=== PATIENT | female | born 1970 | race Caucasian/White ===

== ENCOUNTER 2025-07-16 14:09 | Outpatient (AMB) | payer OTHER, SELFPAY ==
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
[2025-07-16 14:21] VITALS: BP 123/78; PULSE 91; O2SAT 100; BMI 25.7
--- OUTSIDE RECORDS SUMMARY | 2025-07-16 17:49 | XMS_ITS | Clinical Summary ---
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 Name Role Phone Shoshana Giang MD Primary Care Provider Allergies Active Allergy Reactions Criticality Noted Date Comments Amoxicillin 01/16/2016 Bupropion Hives 01/16/2016 Chicken Derived Hives 12/15/2018 Chocolate 01/15/2022 Cranberry 01/15/2022 Egg Medium 06/13/2013 Erythromycin Hives 01/16/2016 Lactose GI intolerance 12/15/2018 Latex 11/16/2012 Nefazodone Hives 01/16/2016 Other 06/21/2013 Adhesive tape:Other Reaction(s): Rash/Dermatitis Devi skin/redness Bee stings Sulfamethoxazole-Trimethop rim 11/16/2012 [place] 12/21/2018 [place] Medications simethicone (MYLICON) 125 mg chewable tablet Prescribed by Gastroenterology 024 Active albuterol HFA (Ventolin HFA) 90 mcg/actuation inhaler Inhale 2 puffs by mouth every 4 (four) hours if needed for wheezing or shortness of breath. 8 g 2 12/13/ 025 2025 Active capsaicin (ZOSTRIX) 0.075 % creamIndicati ons:back pain Apply thin layer to area of discomfort three times daily as needed in thin layer for 2 weeks. Wash hands after use, avoid contact with eyes. 42.5 g 2 Active pantoprazole (PROTONIX) 40 mg EC tablet TAKE 1 TABLET BY MOUTH EVERY DAY 90 tablet 1 Active fexofenadine (SARA) 180 mg tablet TAKE 1 TABLET BY MOUTH AT BEDTIME. 90 tablet 1 Active cholecalcifer ol (Vitamin D3) 50 mcg (2,000 unit) capsule Take 1 capsule (2,000 Units total) by mouth 1 (one) time each day. 30 each 11 025 2025 Active ondansetron (ZOFRAN) 4 mg tablet Take 1 tablet (4 mg total) by mouth every 8 (eight) hours if needed for nausea. for nausea 30 tablet Active acetaminophen (TYLENOL) 500 mg tablet TAKE 2 TABLETS BY MOUTH EVERY 8 HOURS IF NEEDED FOR MILD PAIN OR MODERATE PAIN. 180 tablet 2 Active levothyroxine (SYNTHROID, LEVOTHROID) 137 mcg tablet Take 1 tablet (137 mcg total) by mouth 1 (one) time each day. 30 each 2 025 2025 Active diclofenac (VOLTAREN) 1 % topical gel APPLY 2 G TOPICALLY TWICE A DAY 100 g 2 Active SUMAtriptan (IMITREX) 50 mg tablet Take 1 tablet (50 mg total) by mouth 1 (one) time if needed for migraine. 9 tablet 5 Active nortriptyline (PAMELOR) 75 mg capsule TAKE 1 CAPSULE BY MOUTH EVERYDAY AT BEDTIME 90 capsule 1 Active terbinafine (LamISIL) 250 mg tabletIndicat ions:Onychomy cosis Take 1 tablet (250 mg total) by mouth 1 (one) time each day. 90 each 025 2024 Active cyclobenzapri ne (FLEXERIL) 10 mg tablet TAKE 1 TABLET BY MOUTH AT BEDTIME NEEDED FOR MUSCLE SPASMS 30 tablet 1 Active thiamine 100 mg tablet TAKE 1 TABLET BY MOUTH EVERY DAY 90 tablet 1 Active atorvastatin (LIPITOR) 10 mg tablet TAKE 1 TABLET BY MOUTH 1 TIME EACH DAY. 90 tablet 1 Active cetirizine (ZyrTEC) 10 mg tablet Take 1 tablet (10 mg total) by mouth 1 (one) time each day. 024 2024 Discontinued thiamine 100 mg tablet TAKE 1 TABLET BY MOUTH EVERY DAY 90 tablet 1 025 2024 Discontinued gabapentin (NEURONTIN) 100 mg capsule Take 1 capsule (100 mg total) by mouth 3 (three) times a day. 2024 Discontinued(T herapy completed) ciclopirox (PENLAC) 8 % solution Apply topically at bedtime. Apply over nail and surrounding skin. Apply daily over previous coat. After seven (7) days, may remove with alcohol and continue cycle. 6.6 mL 1 025 2024 Discontinued atorvastatin (LIPITOR) 10 mg tablet Take 1 tablet (10 mg total) by mouth 1 (one) time each day. 30 each 1 2024 Discontinued Active Problems Problem Noted Date Diagnosed Date Syncope 06/07/2025 Neck pain, chronic 12/29/2024 Assessment & Plan (12/29/2024 12:58 PM EDT): While patient was here, she also described chronic neck pain, upper trapezius pain radiating to the intrascapular region, right shoulder pain with decreased range of motion, inability to lift any weight with the right arm. She also described numbness tingling in the hands bilaterally, worse with driving, sleeping. She recalls having an EMG in the past, cannot recall if it was in the upper extremities, was never told if she had carpal tunnel syndrome. She has had previous physical therapy for her right shoulder and neck pain, has gone to [facility] and Dr. Diana for injections in the neck and shoulder. She states the cortisone shot did not help her shoulder pain. She denies radicular pain in the arms. She would rate her neck pain 3/10, no pain with cervical range of motion. Ms. Lux will try physical therapy, prescription provided. She may benefit from hormone replacement therapy, discussed in detail. It sounds like she has right shoulder tendinitis contributing to her overall neck/upper back pain, has difficulty lifting out laterally, pain with reaching overhead. I ordered cervical spine MRI to rule out nerve root compression, DDD. She may also need EMG upper extremities to rule out carpal tunnel syndrome. I will try to track down prior EMG reports first. History of gastric bypass 12/13/2024 Chronic midline low back pain with left-sided sc iatica 12/13/2024 Assessment & Plan (12/29/2024 12:48 PM EDT): Patient describes back pain that started after a fall 10 years ago, she was rollerskating, fell and had a tailbone fracture. She states last month she had a flareup that kept her laid up for a week, she will have episodes where her back pain is so bad she can barely move. Currently her low back pain is about a 3/10. Sometimes she will experience a stabbing pain in the low back, sometimes stiffness. She states sometimes she will be rubbing her back and feel lumps in the muscle. There are times she will have pain down the left posterior leg, gets numbness in the feet chronically on and off. She states she has had 3 EMGs since she moved here in 2012, cannot recall if they were all of her lower extremities or somewhat in the upper extremities, but was always told they were negative. She also has OA in the knees and ankles, with pain in the joints. No history of tick bites, rashes, fevers, Lyme's disease. She was recently diagnosed with fibromyalgia. She had a hysterectomy in 1 ovary removed in 2004, no hormone replacement therapy, does not recall having a period after her hysterectomy. She had physical therapy years ago, does not recall any cortisone injections in the low back. Ms. Lux has low back pain, back spasms, fairly frequent flareups that limit her ability to walk and move. She will experience pain in the left posterior leg on and off. We can check MRI lumbar spine to rule out any nerve root compression, degenerative changes. I also will order bone density test since she is postmenopausal, lumbar spine x-rays 12/13/2024 showed mild compression deformity superior endplate L3 (stable compared with prior exams). We talked about musculoskeletal syndrome of menopause, potential benefits of hormone replacement therapy, she can discuss further with PCP, RATE MANAGER or menopause specialist, we talked about benefits of weight training which can improve bone density and prevent increased muscle loss, as well as increase protein in the diet. I gave her prescription for physical therapy, we also talked about aquatic PT, acupuncture. She can follow-up to review MRI results once completed. All questions answered. Osteoarthritis of lumbar spine 12/13/2024 Change in bowel habits 06/14/2024 Elevated liver enzymes 06/14/2024 Fatty liver 06/14/2024 Rectal bleeding 06/14/2024 Tubular adenoma of colon 06/14/2024 Marijuana use 11/30/2023 Gastroesophageal reflux disease 10/22/2023 Nicotine dependence 10/22/2023 Osteoarthritis of both knees 10/22/2023 Overweight (BMI 25.0-29.9) 08/17/2023 Tension headache 03/18/2023 Sleep apnea 12/25/2021 Overview (06/26/2024): 11/2021 Home Sleep Study did not reveal sleep apnea or nocturnal hypoxia. 01/07/2023 [facility] Sleep Center Polysomnogram: Wt 225#; BMI 39.86; SE 82%; SM 85%; REM 7%; RDI 9 (AHI 1), REM (RDI 37 - AHI 13), Central apneas 2; Obstructive apneas 0; Mixed apneas 0; hypopneas 5; RERAs 41; average oxygen saturation 95*% (lowest 92% - without saturations <88% for 5% or more of study); PLMs 49. - Obstructive Sleep Apnea - mild overall and mild in REM; mostly RERA; without sleep related hypoventilation by 2022 polysomnogram. Anxiety 09/07/2019 Cervical radiculitis 06/08/2019 Vitamin D deficiency 10/26/2018 Paresthesia and pain of both upper extremities 0 02/11/2018 Overview (06/14/2024): Xray cervical spine with mild arthritis. EMG pending DJD (degenerative joint disease) of knee 015 Depression 03/02/2013 Asthma 11/16/2012 Overview (06/14/2024): 11/02-moves here from [place] Deafness 11/16/2012 Overview (06/14/2024): Recurrent ear infections Hyperlipidemia 11/16/2012 Hypothyroidism 11/16/2012 Overview (06/14/2024): graves Migraine 11/16/2012 Overview (06/14/2024): parasthesias-had seen neurology in [place].had nerve conduction test as well Encounters Date Type Department Care Team Description 06/20/2025 8:45 AM EDT Office Visit Adult Medicine [id number] [place] [phone] Rafael Cruz, GERHARD Chronic midline low back pain with left-sided sciatica (Primary Dx); Age-related osteoporosis without current pathological fracture; Elevated blood pressure reading; Pure hypercholesterolemia ; Hypothyroidism, unspecified type; Chronic bilateral low back pain with bilateral sciatica 05/31/2025 2:45 PM EDT Consult Orthopedic Surgery - [place] [address] [place] [phone] Hans Iqbal DPM Pain in toes of both feet (Primary Dx); Lumbosacral radiculopathy; Onychomycosis 05/23/2025 Telephone Adult Medicine [address] [phone] Shoshana Giang MD 05/01/2025 7:00 AM EDT Ancillary Procedure [facility] [address] [phone] Annual physical exam; Numbness of feet; Decreased pulse from Last 3 Months Immunizations Immunization Administration Dates Next Due Pfizer SARS-CoV-2 COVID-19, mRNA, LNP-S, preservative free 01/29/2021,01/08/2021 Pneumococcal conjugate 20 va lent (Prevnar 20, PCV 20) 2mo and older 03/15/2025 Pneumococcal polysaccharide 23 valent (Pneumovax 23) 2yo and older 09/27/2014 Tdap Tetanus diptheria acell ular pertussis (Boostrix; Adacel) 7yo and older 06/13/2019,11/16/2013 Surgical History Surgery Date Site/Laterality Comments PARTIAL HYSTERECTOMY SUPRACERVICAL ABDL HYSTER W/WO RMVL TUBE OVARY, one ovary removed, tubal ligation KNEE SURGERY Left for fracture BREAST SURGERY Right benign COLONOSCOPY 08/28/2021 polyp ESOPHAGOGASTRODUODENOSCOPY 08/28/2021 GERD GASTRIC BYPASS 04/20/2023 - 05/20/2023 Dr. Cruz CHOLECYSTECTOMY 4 days after gastric bypass Medical History Medical History Date Comments Allergic rhinitis 11/16/2012 Asthma 11/16/201211/02-[place]oves here from [place] Deafness 11/16/2012 Recurrent ear in fections Depression 03/02/2013 Hyperlipidemia 11/16/2012 Hypothyroidism 11/16/2012 graves Migraine 11/16/2012 parasthesias-had seen neurology in [place].had nerve conduction test as well Genetic counseling and testing 10/23/2015 p [facility] Former tobacco use 12/16/2017 Since age 15. Quit Nov 03 Obesity (BMI 30-39.9) 12/16/2017 Paresthesia and pain of both upper extremities 02/11/2018 Xray cervical spine with mil d arthritis. EMG pending Fatty liver Change in bowel habits Rectal bleeding Tubular adenoma of colon Anxiety state Cervical spondylosis without myelopathy Gastroesophageal reflux disease 10/22/2023 Elevated liver enzymes Family History Medical History Relation Name Comments Breast cancer Aunt 1 Mat Glaucoma Aunt 1 Mat Other cancer Aunt 2 PAT Uterine CABG Father liver ca Breast cancer Maternal Grandmother Heart failure Mother and TIA Other: restless leg Mother Other cancer Paternal Grandmother uterine Diabetes Sister Other cancer Sister uterine Blindness Neg Hx Cataracts Neg Hx Macular degeneration Neg Hx Strabismus Neg Hx Relation Name Status Comments Aunt 1 Mat Alive Aunt 2 PAT Alive Brother Alive 3,healthy Father Alive copd Maternal Grandmother Mother copd,some heart issue Paternal Grandmother Sister Alive 3,half sisters Social History Tobacco Use Types Packs/Day Years Used Date Smoking Tobacco: Former Cigarettes 1 33.1 0 09/20/1984 - 11/03/2017 Smokeless Tobacco: Never Tobacco Cessation:Counseling Given: Not Answered Alcohol Use Standard Drinks/Week Comments No 0 (1 standard drink = 0.6 oz pur e alcohol) Housing Instability Answer Date Recorde d Are you worried that in the next 2 months you may not have stable housing? Yes 08/09/2024 Food Access & Nutrition Answer Date Rec orded Do you have access to a vari ety of food including fruits and vegetables? No 08/09/2024 Access to Healthcare Answer Date Record ed Within the last 3 months, ho w many times did you visit the emergency department for your medical care? 1 08/09/2024 Health Literacy Answer Date Recorded How often do you need to hav e someone help you when you read instructions, pamphlets, or other written material from your doctor or pharmacy? Never 08/09/2024 Caregiver: How often do you need to have someone help you when you read instructions, pamphlets, or other written material from your doctor or pharmacy? Not on file 08/09/2024 Financial Risk Answer Date Recorded How hard is it for you to pa y for the very basics like food, housing, medical care, and air conditioning / heating? Very hard 08/09/2024 Transportation Answer Date Recorded Has the lack of transportati on kept you from meetings, work, or from getting things needed for daily living? No Has the lack of transportati on kept you from medical appointments or from getting medications? No 08/09/2024 Social Isolation Answer Date Recorded How often do you feel lonely or isolated from th ose around you? Rarely 08/09/2024 Food Risk Answer Date Recorded Within the past 12 months we worried whether our food would run out before we got money to buy more. Sometimes true 024 Within the past 12 months th e food we bought just didn't last and we didn't have money to get more. Sometimes true 08/09/2024 Dependent Care Answer Date Recorded Do you need help finding or paying for care for your loved ones. For example, child watch attendant or elderly care for an older adult? No 08/09/2024 Education Answer Date Recorded Do you think completing more education or training, like finishing a GED, going to college, or learning a trade, would be helpful for you? N/A 08/09/2024 Employment and Income Answer Date Recor ded During the last four weeks, have you been actively looking for work? No 08/09/2024 Living Situation Answer Date Recorded What is your living situation? Unrecognized valu e 08/09/2024 Comments No Sex and Gender Information Value Date Recorded Sex Assigned at Female 03/19/2022 11:51 AM EDT Legal Sex Female 11:46 AM EDT Gender Identity Female 03/19/2022 11:51 AM EDT Sexual Orientation Straight 03/19/2022 11 :51 AM EDT Obstetrics History Last Filed Vital Signs Vital Sign Reading Time Taken Comments Blood Pressure 128/88 06/20/2025 9:14 AM EDT Pulse 91 06/20/2025 8:35 AM EDT Temperature 36.2 C (97.2 F) 06/20/2025 8:35 AM EDT Respiratory Rate 18 06/20/2025 8:35 AM EDT Oxygen Saturation 97% 06/20/2025 8:35 AM EDT Inhaled Oxygen Concentration - - Weight 67.6 kg (149 lb) 06/20/2025 8:35 AM EDT Height 162.6 cm (5' 4 ) 06/20/2025 8:35 AM EDT Body Mass Index 25.58 06/20/2025 8:35 AM EDT Plan of Treatment Upcoming Encounters Date Type Department Care Team (Late st Contact Info) Description 09/19/2025 11:00 AM EST Consult Vascular Surgery - [place] [address] [place] [address] Ashli Dickson MD [address] [place] [phone] 03/19/2026 10:00 AM EDT Office Visit Adult Medicine [address] [phone] Shoshana Giang MD [address] [place] [phone] Health Maintenance Due Date Last Done Comments RSV Immunization Adult Patients (1 - Risk 50-74 years 1-dose series) 2022 COVID-19 Vaccine (3 - 2024- season) 2025 01/29/2021, 01/08/2021 Influenza Vaccine (#1) 2025 Social Influencers of Health Screening 08/09/2025 08/09/2024 Hepatitis B Vaccines (1 of 3 - 19+ 3-dose series) 09/20/2025 Postponed from 1991 (Patient Refused) Medicare Annual Wellness Visit 09/20/2025 Postponed from 03/19/2022 (Patient Refused) Zoster Vaccines (1 of 2) 09/20/2025 Pos tponed from 2022 (Patient Refused) Breast Cancer Screening 10/25/2025 10/25/19 24, 04/15/2022, 04/08/2021, Additional history exists Lung Cancer Screening (Low Dose CT) 02/02/2026 02/02/2025, 01/11/2023 DTaP,Tdap,and Td Vaccines (3 - Td or Tdap) 06/13/2029 06/13/2019, 11/16/2013 Cholesterol Screening (Lipid Panel) 04/23/2030 04/23/2025, 02/05/2025, 10/22/2023, Additional history exists Colorectal Cancer Screening: Colonoscopy 08/28/2031 08/28/2021, 08/28/2021, 08/28/2021, Additional history exists Osteoporosis Screening (Bone Density Screening) 02/14/2035 02/14/2025 HIV Screening Completed 08/03/2024 Hepatitis C Screening Completed 08/03/2024, 024 Depression Screening Completed 12/09/2024, 01/26/20 Pneumococcal Vaccine: 50+ Years Completed 03/15/2025, 09/27/2014 HIB Vaccines Aged Out No longer eligi ble based on patient's age to complete this topic HPV Vaccines Aged Out No longer eligi ble based on patient's age to complete this topic Hepatitis A Vaccines Aged Out No long er eligible based on patient's age to complete this topic IPV Vaccines Aged Out No longer eligi ble based on patient's age to complete this topic MMR Vaccines Aged Out No longer eligi ble based on patient's age to complete this topic Meningococcal ACWY Vaccine Aged Out N o longer eligible based on patient's age to complete this topic Meningococcal B Vaccine Aged Out No l onger eligible based on patient's age to complete this topic RSV Immunization Patients Under 20 months Aged Out No longer eligible based on patient's age to complete this topic Varicella Vaccines Aged Out No longer eligible based on patient's age to complete this topic Procedures Procedure Name Priority Date/Time Associated Diagnosis Comments VAS US DUPLEX LOWER EXT ARTERIES BILAT WITH ANH Routine 05/01/2025 7:37 AM EDT Annual physical exam Numbness of feet Decreased pulse TRIIODOTHYRONINE FREE Routine 04/23/2025 8:10 AM EDT Hypothyroidism, unspecified type FREE THYROXINE WITH REFLEX TO FREE TRIIODOTHYRONINE Routine 04/23/2025 8:10 AM EDT Hypothyroidism, unspecified type CBC WITH AUTO DIFFERENTIAL Routine 04/23/2025 8:10 AM EDT Annual physical exam VITAMIN D 25 HYDROXY Routine 04/23/2025 8:10 AM EDT Annual physical exam CBC AND DIFFERENTIAL Routine 04/23/2025 8:10 AM EDT Annual physical exam COMPREHENSIVE METABOLIC PANEL Routine 04/23/2025 8:10 AM EDT Annual physical exam LIPID PANEL WITH REFLEX TO DIRECT LDL Routine 04/23/2025 8:10 AM EDT Annual physical exam THYROID STIMULATING HORMONE WITH REFLEX TO FREE T4 AND FREE T3 Routine 04/23/2025 8:10 AM EDT Hypothyroidism, unspecified type BD BONE DENSITY DXA AXIAL SKELETON Routine 02/14/2025 9:07 AM EDT H/O compression fracture of spine CT LUNG SCREENING Routine 02/02/2025 10: 07 AM EDT Former smoker Encounter for screening for lung cancer HEPATITIS C ANTIBODY Routine 08/03/2024 10:07 AM EST Gonorrhea contact, treated Screen for STD (sexually transmitted disease) HIV 1, 2 ANTIBODY, P24 ANTIGEN WITH REFLEX TO DIFFERENTIATION Routine 08/03/2024 10:07 AM EST Screening examination for venereal disease HM DEPRESSION SCREENING Routine 01/26/2024 SCREENING MAMMOGRAPHY BI 2-VIEW BREAST INC CAD Routine 10/25/2023 9:02 AM EST Encounter for screening mammogram for malignant neoplasm of breast HM COLONOSCOPY Routine 08/28/2021 from Last 3 Months or Most Recently Relevant to Health Maintenance Results * Vascular US duplex lower extremity arteries bilateral with ANH (05/01/2025 7:37 AM EDT) Left Dist External Iliac PSV 89 cm/s CV [facility] LAB Left Prox External Iliac PSV 89 cm/s CV [facility] Left AT dist sys PSV 36 cm/s CV [facility] Left AT mid sys PSV 36 cm/s CV VAS LAB Left AT prox sys PSV 58 cm/s CV VAS LAB Left INFORMATION TECHNOLOGY PROFESSOR prox sys PSV 60 cm/s CV VAS LAB Left mid peroneal sys PSV 29 cm/s CV VAS LAB Left popliteal dist sys PSV 54 cm/s CV VAS LAB Left popliteal prox sys PSV 59 cm/s CV VAS LAB Left PT dist sys PSV 54 cm/s CV VAS LAB Left PT mid sys PSV 58 cm/s CV VAS LAB Left PT prox sys PSV 53 cm/s CV VAS LAB Left super femoral dist sys PSV 85 cm/s CV VAS LAB Left super femoral mid sys PSV 94 cm/s CV VAS LAB Left super femoral prox sys PSV 82 cm/s CV VAS LAB Right Dist External Iliac PSV 91 cm/s CV VAS LAB Right Prox External Iliac PSV 98 cm/s CV V[facility] LAB Right AT dist sys PSV 36 cm/s CV V[facility] LAB Right AT mid sys PSV 40 cm/s CV V[facility] LAB Right AT prox sys PSV 33 cm/s CV VAS LAB Right INFORMATION TECHNOLOGY PROFESSOR prox sys PSV 66 cm/s CV VAS LAB Right mid peroneal sys PSV 41 cm/s CV VAS LAB Right popliteal dist sys PSV 66 cm/s CV VAS LAB Right popliteal prox sys PSV 38 cm/s CV VAS LAB Right PT dist sys PSV 65 cm/s CV VAS LAB Right PT mid sys PSV 62 cm/s CV VAS LAB Right PT prox sys PSV 67 cm/s CV VAS LAB Right super femoral dist sys PSV 62 cm/s CV VAS LAB Right super femoral mid sys PSV 94 cm/s CV VAS LAB Right super femoral prox sys PSV 81 cm/s CV VAS LAB Right profunda sys PSV 59 cm/s CV V[facility] LAB Right arm BP 99 mmHg CV [facility] Left arm BP 103 mmHg CV V[facility] Right posterior tibial 131 mmHg CV V[facility] LAB Right Dorsalis Pedis 126 mmHg CV VAS LAB Right ANH 1.27 CV VAS LAB Left posterior tibial 127 mmHg CV VAS LAB Left Dorsalis Pedis 102 mmHg CV V[facility] LAB Left ANH 1.23 CV VAS LAB Left profunda sys PSV 62 cm/s CV VAS LAB Anatomical Region Laterality Modality Vascular, Abdomen Ultrasound Narrative 05/18/2025 5:48 PM EDT Right le. Normal ankle-brachial index (1.27). 2. There is evidence of moderate stenosis (20-49%) in the following arterial segments: Proximal SFA, distal SFA, anterior tibial artery Left le. Normal ankle-brachial index (1.23). 2. There is evidence of moderate stenosis (20-49%) in the following arterial segments: Mid to distal anterior tibial artery, MARBLEIZING MACHINE TENDER, and peroneal artery Right Lower Arterial Duplex The distal external iliac artery has triphasic flow. The common femoral artery has triphasic flow. The profunda femoris artery has triphasic flow. The proximal superficial femoral artery has biphasic flow. The mid superficial femoral artery has triphasic flow. The distal superficial femoral artery has biphasic flow. The proximal popliteal artery has biphasic flow. The distal popliteal artery has triphasic flow. The anterior tibial artery has biphasic flow. The posterior tibial artery has triphasic flow. The mid peroneal artery has triphasic flow. Left Lower Arterial Duplex The distal external iliac artery has triphasic flow. The common femoral artery has triphasic flow. The profunda femoris artery has triphasic flow. The superficial femoral artery has triphasic flow. The popliteal artery has triphasic flow. The proximal anterior tibial artery has triphasic flow. The mid anterior tibial artery has biphasic flow. The distal anterior tibial artery has biphasic flow. The posterior tibial artery has biphasic flow. The mid peroneal artery has biphasic flow. Assembler Garment Form Details A hyde scale, color and doppler analysis ultrasound was performed. During the study longitudinal views were obtained. Continuous wave doppler, pulsed wave doppler and pulsed volume recording (PVR) was performed. Overall the study quality was good. us Shoshana Giang MD CV VASCULAR PROCEDURES Maria Luisa l Result * (ABNORMAL) Thyroid stimulating hormone with reflex to free t4 and free t3 (04/23/2025 8:10 AM EDT) TSH 16.92(H) 0.40 - 4.00 mcIU/mL LAB CHEMISTRY METHOD 04/23/2025 11:07 AM EDT [facility] Blood Venous blood specimen / Unknown Venipuncture / Unknown 04/23/2025 8:10 AM EDT 04/23/2025 8:10 AM EDT us Shoshana Giang MD LAB BLOOD ORDERABLES Final Result Performing Organization Address [facility]/ZIP Co de Phone Number [facility] [address] [place] [address], [place] [phone] * Free thyroxine with reflex to free triiodothyronine (04/23/2025 8:10 AM EDT) [facility] Free T4 1.21 0.70 - 1.80 ng/dL LAB CHEMISTRY METHOD 04/23/2025 11:54 AM EDT [facility] Blood Venous blood specimen / Unknown Venipuncture / Unknown 04/23/2025 8:10 AM EDT 04/23/2025 8:10 AM EDT Shoshana Giang MD LAB BLOOD ORDERABLES Final Result [facility] [address] [place] [address], [place] [phone] * (ABNORMAL) Lipid panel with reflex to direct LDL (04/23/2025 8:10 AM EDT) Cholesterol 263(H) 0 - 200 mg/dL LAB CHEMISTRY METHOD 04/23/2025 10:12 AM EDT [facility] Triglycerides 198(H) 0 - 150 mg/dL LAB CHEMISTRY METHOD 04/23/2025 10:12 AM EDT [facility] HDL 42 >=40 mg/dL LAB CHEMISTRY METHOD 04/23/2025 10:12 AM [facility] LDL Calculated 181(H) 0 - 100 mg/dL LAB CHEMISTRY METHOD 04/23/2025 10:12 AM EDT [facility] VLDL Cholesterol Jaspal 39.6 mg/dL LAB CHEMISTRY METHOD 04/23/2025 10:12 AM [facility] Non HDL Chol. (LDL+VLDL) 221(H) <145 mg/dL LAB CHEMISTRY METHOD 04/23/2025 10:12 AM [facility] Chol/HDL Ratio 6.3(H) 0.0 - 4.4 LAB CHEMISTRY METHOD 04/23/2025 10:12 AM T [facility] Blood Venous blood specimen / Unknown Venipuncture / Unknown 04/23/2025 8:10 AM EDT 04/23/2025 8:10 AM EDT us Shoshana Giang MD LAB BLOOD ORDERABLES Final Result [facility] [address] [place] [address], * (ABNORMAL) CBC auto differential (04/23/2025 8:10 AM EDT) WBC 7.6 4.8 - 10.8 K/mcL LAB HEMETOLOGY METHOD 04/23/2025 10:14 AM T [facility] RBC 4.90(H) 3.80 - 4.80 M/mcL LAB HEMETOLOGY METHOD 04/23/2025 10:14 AM T [facility] Hemoglobin 15.4 11.5 - 16.0 g/dL LAB HEMETOLOGY METHOD 04/23/2025 10:14 AM [facility] Hematocrit 46.3 35.0 - 47.0 % LAB HEMETOLOGY METHOD 04/23/2025 10:14 AM [facility] MCV 94.5 79.0 - 98.0 FL LAB HEMETOLOGY METHOD 04/23/2025 10:14 AM [facility] MCH 31.4 27.0 - 32.0 pcg LAB HEMETOLOGY METHOD 04/23/2025 10:14 AM [facility] MCHC 33.3 32.0 - 37.0 g/dL LAB HEMETOLOGY METHOD 04/23/2025 10:14 AM [facility] RDW 12.2 11.0 - 15.0 % LAB HEMETOLOGY METHOD 04/23/2025 10:14 AM [facility] Platelets 355 130 - 400 K/mcL LAB HEMETOLOGY METHOD 04/23/2025 10:14 AM [facility] MPV 10.0 7.0 - 11.0 FL LAB HEMETOLOGY METHOD 04/23/2025 10:14 AM [facility] NRBC 0.0 <1.0 % LAB HEMETOLOGY METHOD 04/23/2025 10:14 AM [facility] NRBC Absolute 0.00 <0.10 K/mcL LAB HEMETOLOGY METHOD 04/23/2025 10:14 AM [facility] Neutrophils Relative 53.6 % LAB HEMETOLOGY METHOD 04/23/2025 10:14 AM [facility] Lymphocytes Relative 38.9 % LAB HEMETOLOGY METHOD 04/23/2025 10:14 AM [facility] Monocytes Relative 5.3 % LAB HEMETOLOGY METHOD 04/23/2025 10:14 AM EDT [facility] Eosinophils Relative 1.3 % LAB HEMETOLOGY METHOD 04/23/2025 10:14 AM [facility] Basophils Relative 0.5 % LAB HEMETOLOGY METHOD 04/23/2025 10:14 AM [facility] Immature Granulocytes Relative 0.4 % LAB HEMETOLOGY METHOD 04/23/2025 10:14 AM EDT [facility] Neutrophils Absolute 4.08 1.50 - 7.00 K/mcL LAB HEMETOLOGY METHOD 04/23/2025 10:14 AM [facility] Lymphocytes Absolute 2.96 1.00 - 5.00 K/mcL LAB HEMETOLOGY METHOD 04/23/2025 10:14 AM [facility] Monocytes Absolute 0.40 0.20 - 1.00 K/mcL LAB HEMETOLOGY METHOD 04/23/2025 10:14 AM [facility] Eosinophils Absolute 0.10 0.00 - 0.50 K/mcL LAB HEMETOLOGY METHOD 04/23/2025 10:14 AM [facility] Basophils Absolute 0.04 0.00 - 0.20 K/mcL LAB HEMETOLOGY METHOD 04/23/2025 10:14 AM [facility] Immature Granulocytes Absolute 0.03 0.00 - 0.03 K/mcL LAB HEMETOLOGY METHOD 04/23/2025 10:14 AM T [facility] Blood Venous blood specimen / Unknown Venipuncture / Unknown 04/23/2025 8:10 AM EDT 04/23/2025 8:10 AM EDT us Shoshana Giang MD LAB BLOOD ORDERABLES Final Result [facility] [address] [place] [address], * Vitamin D 25 hydroxy (04/23/2025 8:10 AM EDT) Vit D, 25-Hydroxy 35.1 30.0 - 80.0 ng/mL LAB CHEMISTRY METHOD 04/23/2025 11:07 AM EDT [facility] Blood Venous blood specimen / Unknown Venipuncture / Unknown 04/23/2025 8:10 AM EDT 04/23/2025 8:10 AM EDT Shoshana Giang MD LAB BLOOD ORDERABLES Final Result Performing Organization Address City/[facility]/ZIP Co de Phone Number [facility] [address] [place] [address], [place] [phone] * (ABNORMAL) Triiodothyronine free (04/23/2025 8:10 AM EDT) Pathologist [facility] [place] T3, Free 215(L) 230 - 420 pcg/dL LAB CHEMISTRY METHOD 04/23/2025 12:43 PM EDT [facility] Blood Venous blood specimen / Unknown Venipuncture / Unknown 04/23/2025 8:10 AM EDT 04/23/2025 8:10 AM EDT Shoshana Giang MD LAB BLOOD ORDERABLES Final Result Performing Organization Address City/[facility]/ZIP Co de Phone Number [facility] [address] [place] [address], [place] [phone] * (ABNORMAL) Comprehensive metabolic panel (04/23/2025 8:10 AM EDT) Pathologist [facility] [place] Sodium 138 133 - 145 mmol/L LAB CHEMISTRY METHOD 04/23/2025 10:12 AM EDT [facility] Potassium 4.3 3.5 - 5.5 mmol/L LAB CHEMISTRY METHOD 04/23/2025 10:12 AM EDT [facility] Chloride 106 96 - 110 mmol/L LAB CHEMISTRY METHOD 04/23/2025 10:12 AM [facility] CO2 29 21 - 32 mmol/L LAB CHEMISTRY METHOD 04/23/2025 10:12 AM [facility] Anion Gap 3 3 - 11 LAB CHEMISTRY METHOD 04/23/2025 10:12 AM [facility] Glucose 78 70 - 100 mg/dL LAB CHEMISTRY METHOD 04/23/2025 10:12 AM [facility] BUN 12 5 - 25 mg/dL LAB CHEMISTRY METHOD 04/23/2025 10:12 AM [facility] Creatinine 0.90 0.50 - 1.10 mg/dL LAB CHEMISTRY METHOD 04/23/2025 10:12 AM [facility] eGFR 77 >=60 mL/min/1. 73m2 LAB CHEMISTRY METHOD 04/23/2025 10:12 AM [facility] Comment:Calculation based on the Chronic Kidney Disease Epidemiology Collaboration (CKD-EPI) equation refit without adjustment for race. BUN/Creatinine Ratio 13.3 LAB CHEMISTRY METHOD 04/23/2025 10:12 AM [facility] Calcium 9.1 8.5 - 10.5 mg/dL LAB CHEMISTRY METHOD 04/23/2025 10:12 AM [facility] AST (SGOT) 23 10 - 42 unit/L LAB CHEMISTRY METHOD 04/23/2025 10:12 AM [facility] ALT (SGPT) 43 10 - 60 unit/L LAB CHEMISTRY METHOD 04/23/2025 10:12 AM [facility] Alkaline Phosphatase 157(H) 42 - 121 unit/L LAB CHEMISTRY METHOD 04/23/2025 10:12 AM [facility] Total Protein 7.2 6.0 - 8.0 g/dL LAB CHEMISTRY METHOD 04/23/2025 10:12 AM [facility] Albumin 4.3 3.2 - 5.0 g/dL LAB CHEMISTRY METHOD 04/23/2025 10:12 AM EDT [facility] Total Bilirubin 0.5 0.0 - 1.4 mg/dL LAB CHEMISTRY METHOD 04/23/2025 10:12 AM EDT [facility] Blood Venous blood specimen / Unknown Venipuncture / Unknown 04/23/2025 8:10 AM EDT 04/23/2025 8:10 AM EDT us Shoshana Giang MD LAB BLOOD ORDERABLES Final Result [facility] [address] [place] [address], * BD Bone Density DXA Axial Skeleton (02/14/2025 9:07 AM EDT) Anatomical Region Laterality Modality Wrist, Hip, L-spine Bone Densito metry 02/14/2025 9:39 AM EDT Impressions 02/14/2025 9:41 AM EDT 1. Osteoporosis. 2. FRAX analysis yields a 10-year probability of major osteoporotic fracture of 11.4% and a 10-year probability of hip fracture of 1.4%. Code 99458 -------- FINAL REPORT -------- Dictated By: José Miguel Corrales Dictated Date: 02/14/2025 09:39 ET Assigned Physician: José Miguel Corrales Reviewed and Electronically Signed By: José Miguel Corrales Signed Date: 02/14/2025 09:41 ET Workstation ID: [id number] Transcribed By: Self Edit Transcribed Date: 02/14/2025 09:39 ET Narrative 02/14/2025 9:41 AM EDT HISTORY: The patient is a 54-year-old postmenopausal female with clinical concern for metabolic bone disease. FINDINGS: Dual energy x-ray absorptiometry of the lumbar spine and femurs is performed. The mean bone mineral density at L1-L4 (with the exclusion of L3) is 0.857 gm/cm2 which is 73% of that of young normals and 77% of that of age matched controls. This yields a T-score of -2.6 and a Z-score of -2.1 which is diagnostic of osteoporosis. The mean bone mineral density of the femurs bilaterally is 0.756 gm/cm2 which is 75% of that of young normals and 80% of that of age matched controls. This yields a T-score of -2.0 and a Z-score of -1.5 which is diagnostic of osteopenia. Procedure Note José Miguel Corrales MD - 02/14/2025 HISTORY: The patient is a 54-year-old postmenopausal female with clinicalconcern for metabolic bone disease. FINDINGS: Dual energy x-ray absorptiometry of the lumbar spine and femursis performed. The mean bone mineral density at L1-L4 (with the exclusionof L3) is 0.857 gm/cm2 which is 73% of that of young normals and 77% ofthat of age matched controls. This yields a T-score of -2.6 and a Z-scoreof -2.1 which is diagnostic of osteoporosis. The mean bone mineral density of the femurs bilaterally is 0.756 gm/[id number] is 75% of that of young normals and 80% of that of age matchedcontrols. This yields a T-score of -2.0 and a Z-score of -1.5 which isdiagnostic of osteopenia. IMPRESSION: 1. Osteoporosis. 2. FRAX analysis yields a 10-year probability of major osteoporoticfracture of 11.4% and a 10-year probability of hip fracture of 1.4%. Code 63245 -------- FINAL REPORT -------- Dictated By: José Miguel Corrales Dictated Date: 02/14/2025 09:39 ET Assigned Physician: José Miguel Corrales Reviewed and Electronically Signed By: José Miguel Corrales Signed Date: 02/14/2025 09:41 ET Workstation ID: [id number] Transcribed By: Self Edit Transcribed Date: 02/14/2025 09:39 ET us Michelle VILLALOBOS IMG DXA PROCEDURES Final R esult * CT Lung Screening (02/02/2025 10:07 AM EDT) Anatomical Region Laterality Modality Chest Computed Tomogra phy 02/02/2025 10:4 2 AM EDT Impressions 02/02/2025 11:08 AM EDT No suspicious mass or nodule. Previous granulomatous disease. No suspicious interval change LUNG RADS: Lung-RADS 2: BENIGN S Modifier (Significant or Potentially Significant Findings): None present No suspicious nonpulmonary findings. RECOMMENDATIONS: 12 month screening low dose CT -------- FINAL REPORT -------- Dictated By: Kael Mcallister Dictated Date: 02/02/2025 10:42 ET Assigned Physician: Kael Mcallister Reviewed and Electronically Signed By: Kael Mcallister Signed Date: 02/02/2025 11:08 ET Workstation ID: [id number] Transcribed By: Self Edit Transcribed Date: 02/02/2025 10:42 ET Narrative 02/02/2025 11:08 AM EDT EXAMINATION: CT CHEST WITHOUT CONTRAST LUNG CANCER SCREENING, LOW DOSE CLINICAL INFORMATION: Lung cancer screening. Former smoker. COMPARISON: Portions of previous 12/27/23 TECHNIQUE: Multidetector CT. Examination of the chest. Examination of the chest without IV contrast. Reformatting in the coronal and sagittal planes. Device: Stellar VCT DLP: 158 mGy-cm CTDI: 4.83 Dose optimization was performed including the use of low-dose iterative reconstruction technique with automatic exposure control based on patient size. Type of contrast: None Volume of IV contrast: None Volume of contrast discarded: 0 mL FINDINGS: LUNG: No abnormality of the trachea or mainstem bronchi. LUNG NODULES: There are no suspicious nodules or masses. There are scattered micronodules several which are calcified granulomata. OTHER PULMONARY: Moderately severe centrilobular emphysema. Barely perceptible reticular dependent lower lung opacities without honeycombing formation. MEDIASTINUM: There are no enlarged mediastinal or hilar lymph nodes. No suspicious abnormalities of the esophagus. The thyroid is not demonstrated. CARDIAC: The heart is not enlarged. No pericardial fluid or thickening There are mild coronary calcifications. VASCULAR: There is no thoracic aortic aneurysm. The main pulmonary artery is normal caliber PLEURA: There is no pleural fluid or pneumothorax AXILLA/CHEST WALL: There are no enlarged axillary lymph nodes. No chest wall mass demonstrated. VISUALIZED UPPER ABDOMEN: No suspicious abnormality on limited assessment of the visualized upper abdomen. Previous bariatric surgery. Previous cholecystectomy. MUSCULOSKELETAL: No suspicious focal bony lesion demonstrated. Procedure Note Kael Mcallister MD - 02/02/2025 EXAMINATION: CT CHEST WITHOUT CONTRAST LUNG CANCER SCREENING, LOW DOSE CLINICAL INFORMATION: Lung cancer screening. Former smoker. COMPARISON: Portions of previous 12/27/23 TECHNIQUE: Multidetector CT. Examination of the chest. Examination of the chest without IV contrast. Reformatting in the coronal and sagittal planes. Device: Stellar VCT DLP: 158 mGy-cm CTDI: 4.83 Dose optimization was performed including the use of low-dose iterativereconstruction technique with automatic exposure control based on patientsize. Type of contrast: None Volume of IV contrast: None Volume of contrast discarded: 0 mL FINDINGS: LUNG: No abnormality of the trachea or mainstem bronchi. LUNG NODULES: There are no suspicious nodules or masses. There are scattered micronodules several which are calcifiedgranulomata. OTHER PULMONARY: Moderately severe centrilobular emphysema. Barelyperceptible reticular dependent lower lung opacities without honeycombingformation. MEDIASTINUM: There are no enlarged mediastinal or hilar lymph nodes. Nosuspicious abnormalities of the esophagus. The thyroid is notdemonstrated. CARDIAC: The heart is not enlarged. No pericardial fluid or thickening There are mild coronary calcifications. VASCULAR: There is no thoracic aortic aneurysm. The main pulmonary arteryis normal caliber PLEURA: There is no pleural fluid or pneumothorax AXILLA/CHEST WALL: There are no enlarged axillary lymph nodes. No chestwall mass demonstrated. VISUALIZED UPPER ABDOMEN: No suspicious abnormality on limited assessmentof the visualized upper abdomen. Previous bariatric surgery. Previouscholecystectomy. MUSCULOSKELETAL: No suspicious focal bony lesion demonstrated. IMPRESSION: No suspicious mass or nodule. Previous granulomatous disease. No suspicious interval change LUNG RADS: Lung-RADS 2: BENIGN S Modifier (Significant or Potentially Significant Findings): Nonepresent No suspicious nonpulmonary findings. RECOMMENDATIONS: 12 month screening low dose CT -------- FINAL REPORT -------- Dictated By: Kael Mcallister Dictated Date: 02/02/2025 10:42 ET Assigned Physician: Kael Mcallister Reviewed and Electronically Signed By: Kael Mcallister Signed Date: 02/02/2025 11:08 ET Workstation ID: [id number] Transcribed By: Self Edit Transcribed Date: 02/02/2025 10:42 ET Ghassan Deluna MD IMG CT PROCEDURES Final Result * Hepatitis C antibody (08/03/2024 10:07 AM EST) Hepatitis C Antibody Negative Negative LAB CHEMISTRY METHOD 08/03/2024 12:16 PM EST [facility] Blood Venous blood specimen / Unknown Venipuncture / Unknown 08/03/2024 10:07 AM EST 08/03/2024 10:18 AM EST Janessa Henderson [facility] BLOOD ORDERABLES Final Re sult Performing Organization Address [facility] de Phone Number [facility] [address] [place] [address], [place] [phone] * HIV 1,2 antibody, p24 antigen with reflex to differentiation (08/03/2024 10:07 AM EST) HIV Combo AB/AG Negative Negative LAB CHEMISTRY METHOD 08/03/2024 12:17 PM EST [facility] Blood Venous blood specimen / Unknown Venipuncture / Unknown 08/03/2024 10:07 AM EST 08/03/2024 10:18 AM EST Narrative [facility] - 08/03/2024 12:17 PM EST This assay is a 4th generation assay allowing for earlier detection of HIV infection by detecting the presence of the HIV-1 p24 antigen as well as the traditional antibodies to HIV type 1 (including group O) and type 2. Use of a 4th generation assay is the current CDC recommendation for HIV screening. Janessa Henderson [facility] BLOOD ORDERABLES Final Re sult Performing Organization Address [facility] Co de Phone Number [facility] [address] [place] [address], [place] [phone] * Depression Screening (01/26/2024) Depression Screening abstracted Historical Provider HEALTH MAINTENANCE Final Result * SCREENING MAMMOGRAPHY BI 2-VIEW BREAST INC CAD (10/25/2023 9:02 AM EST) Anatomical Region Laterality Modality Radiographic Shana ging 10/22/2023 11:5 9 AM EST Narrative 10/26/2023 7:32 AM EST This is a summary report. The complete report is available in the patient's medical record. If you cannot access the medical record, please contact the sending organization for a detailed fax or copy. Exam: Screening mammogram Findings: Digital bilateral full-field screening mammography is performed with tomosynthesis and interpreted with the aid of computer-aided detection. Comparison is made with 04/15/2022 and as far back as 01/31/2019. Breast parenchyma is composed of scattered fibroglandular densities. No new suspicious mass, architectural distortion, or suspicious calcifications. Impression: No mammographic evidence of malignancy. BI-RADS 1 - negative Procedure Note Payal Cho MD - 05/08/2024 This is a summary report. The complete report is available in thepatient's medical record. If you cannot access the medical record, pleasecontact the sending organization for a detailed fax or copy. Exam: Screening mammogram Findings: Digital bilateral full-field screening mammography is performedwith tomosynthesis and interpreted with the aid of computer-aideddetection. Comparison is made with 04/15/2022 and as far back as01/31/2019. Breast parenchyma is composed of scattered fibroglandular densities. Nonew suspicious mass, architectural distortion, or suspiciouscalcifications. Impression: No mammographic evidence of malignancy. 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
== END 2025-07-16 14:45 | disposition home or self-care (01) ==
PROVIDERS: PCP Internal Medicine; Visit Provider Nurse Practitioner Family
DX: M54.50 Low back pain, unspecified (principal); G89.29 Other chronic pain; M51.369 Other intervertebral disc degeneration, lumbar region without mention of lumbar back pain or lower extremity pain; M47.817 Spondylosis without myelopathy or radiculopathy, lumbosacral region; M25.50 Pain in unspecified joint; M81.0 Age-related osteoporosis without current pathological fracture
CPT/HCPCS: 99204

== ENCOUNTER → 2025-07-16 14:09 | Outpatient (BNVA) | payer OTHER, SELFPAY | PROVIDERS: PCP Internal Medicine; Visit Provider Nurse Practitioner Family | DX: M51.360 Other intervertebral disc degeneration, lumbar region with discogenic back pain only (principal); G89.29 Other chronic pain; M47.817 Spondylosis without myelopathy or radiculopathy, lumbosacral region; M25.50 Pain in unspecified joint; M81.0 Age-related osteoporosis without current pathological fracture | CPT/HCPCS: 99202 ==

== ENCOUNTER 2025-09-18 07:03 | Outpatient (REF) | payer OTHER, SELFPAY ==
--- NOTE | ~2025-09-18 | FL_ITS ---
EXAMINATION: FLUOROSCOPY GUIDANCE FOR NEEDLE PLACEMENT CLINICAL INFORMATION: M47.817 - Spondylosis without myelopathy or radiculopathy, lumbosacral r... COMPARISON: None available. TECHNIQUE: Fluoroscopy guidance provided for pain management procedure. FINDINGS: 12 submitted fluoroscopic images. These demonstrate needle placement and contrast injection adjacent to the bilateral lateral L3, L4 and L5 vertebrae. Her note for detailed findings. FLUOROSCOPY TIME: 41 seconds DOSE AREA PRODUCT: 1612 mGy-cm2 FL/FL guidance in treatment room IMPRESSION: Fluoroscopy guidance for pain management procedure. Electronically signed by: Jamee Pruett MD 09/19/2025 09:45 AM [facility]
--- OUTSIDE RECORDS SUMMARY | 2025-09-18 08:48 | XMS_ITS | Clinical Summary ---
Author Organization [facility] [place] Address [address] [place] [address] Care Team Providers Care Tram Driver Name Role Phone Shoshana Giang MD Primary Care Provider Allergies Active Allergy Reactions Criticality Noted Date Comments Amoxicillin 01/16/2016 Bupropion Hives 01/16/2016 Chicken Derived Hives 12/15/2018 Chocolate 01/15/2022 Cranberry 01/15/2022 Egg Medium 06/13/2013 Erythromycin Hives 01/16/2016 Lactose GI intolerance 12/15/2018 Latex 11/16/2012 Nefazodone Hives 01/16/2016 Other 06/21/2013 Adhesive tape:Other Reaction(s): Rash/Dermatitis Devi skin/redness Bee stings Sulfamethoxazole-Trimethop rim 11/16/2012 [place] 12/21/2018 [place] Medications simethicone (MYLICON) 125 mg chewable tablet [...] contact with eyes. 42.5 g 2 Active cholecalcifer ol (Vitamin D3) 50 mcg (2,000 unit) capsule Take 1 capsule (2,000 Units total) by mouth 1 (one) time each day. 30 each 025 2025 Active ondansetron (ZOFRAN) 4 mg tablet Take 1 tablet (4 mg total) by mouth every 8 (eight) hours if needed for nausea. for nausea 30 tablet Active diclofenac (VOLTAREN) 1 % topical gel APPLY 2 G TOPICALLY TWICE A DAY 100 g 2 Active SUMAtriptan (IMITREX) 50 mg tablet Take 1 tablet (50 mg total) by mouth 1 (one) time if needed for migraine. 9 tablet 5 Active nortriptyline (PAMELOR) 75 mg capsule TAKE 1 CAPSULE BY MOUTH EVERYDAY AT BEDTIME 90 capsule 1 Active thiamine 100 mg tablet TAKE 1 TABLET BY MOUTH EVERY DAY 90 tablet 1 Active atorvastatin (LIPITOR) 10 mg tablet TAKE 1 TABLET BY MOUTH 1 TIME EACH DAY. 90 tablet 1 Active fexofenadine (SARA) 180 mg tablet TAKE 1 TABLET BY MOUTH AT BEDTIME. 90 tablet 1 Active acetaminophen (TYLENOL) 500 mg tablet TAKE 2 TABLETS BY MOUTH EVERY 8 HOURS IF NEEDED FOR MILD PAIN OR MODERATE PAIN. 540 tablet 6 Active levothyroxine (SYNTHROID, LEVOTHROID) 137 mcg tablet TAKE 1 TABLET (137 MCG TOTAL) BY MOUTH DAILY 90 tablet 1 Active pantoprazole (PROTONIX) 40 mg EC tablet TAKE 1 TABLET BY MOUTH EVERY DAY 90 tablet 1 Active cyclobenzapri ne (FLEXERIL) 10 mg tablet TAKE 1 TABLET BY MOUTH AT BEDTIME NEEDED FOR MUSCLE SPASMS 30 tablet Active terbinafine (LamISIL) 250 mg tabletIndicat ions:Onychomy cosis Take 1 tablet (250 mg total) by mouth 1 (one) time each day. 90 each 025 2024 cyclobenzapri ne (FLEXERIL) 10 mg tablet TAKE 1 TABLET BY MOUTH AT BEDTIME NEEDED FOR MUSCLE SPASMS 30 tablet 08/17/ 025 2024 Discontinued Active Problems Problem Noted Date [...] therapy, she can discuss further with PCP, RN PATIENT SERVICES or menopause specialist, we talked about benefits [...] reveal sleep apnea or nocturnal hypoxia. 01/07/2023 [facility] Polysomnogram: Wt 225#; BMI 39.86; [...] Asthma 11/16/2012 Overview (06/14/2024): 11/02-moves here from [place] Deafness 11/16/2012 Overview (06/14/2024): Recurrent ear infections Hyperlipidemia 11/16/2012 Hypothyroidism 11/16/2012 Overview (06/14/2024): graves Migraine 11/16/2012 Overview (06/14/2024): parasthesias-had seen neurology in [place], [place].had nerve conduction test as well Encounters Date Type Department Care Team Description 07/23/2025 Telephone Adult Medicine [address] [phone] Shoshana Giang MD 06/20/2025 8:45 AM EDT Office Visit Adult Medicine [address] [phone] Nikkie Cruz-Pam Nixon, [place]ERH[place] Chronic midline low back pain with left-sided sciatica (Primary Dx); Age-related osteoporosis without current pathological fracture; Elevated blood pressure reading; Pure hypercholesterolemia; Hypothyroidism, unspecified type; Chronic bilateral low back pain with bilateral sciatica from Last 3 Months Immunizations Immunization Administration [...] Allergic rhinitis 11/16/2012 Asthma 11/16/201211/02-moves here from [place] Deafness 11/16/2012 Recurrent ear in fections Depression 03/02/2013 Hyperlipidemia 11/16/2012 Hypothyroidism 11/16/2012 graves Migraine 11/16/2012 parasthesias-had seen neurology in [place], [place].had nerve conduction test as well Genetic [...] care for your loved ones. For example, children librarian or elderly care for an older adult? [...] Orientation Straight 03/19/2022 11 :51 AM EDT Last Filed Vital Signs Vital Sign Reading [...] 11:00 AM EST Consult Vascular Surgery - [place] [address] [place] [address] Ashli Dickson MD [address] [place] [phone] 03/19/2026 10:00 AM EDT Office Visit Adult Medicine [address] [phone] Shoshana Giang MD [address] [facility] [place] [address] Health Maintenance Due Date Last Done Comments [...] 2022 (Patient Refused) Breast Cancer Screening 10/25/2025 10/25/19, 04/15/2022, 04/08/2021, Additional history exists Lung Cancer [...] Procedure Name Priority Date/Time Associated Diagnosis Comments LIPID PANEL WITH REFLEX TO DIRECT LDL Routine 04/23/2025 8:10 AM EDT Annual physical exam BD BONE DENSITY DXA AXIAL SKELETON Routine [...] AM EST Screening examination for venereal disease DEPRESSION SCREENING Routine 01/26/2024 SCREENING MAMMOGRAPHY BI 2-VIEW BREAST INC CAD Routine 10/25/2023 9:02 AM EST Encounter for screening mammogram for malignant neoplasm of breast COLONOSCOPY Routine 08/28/2021 from Last 3 Months or Most Recently Relevant to Health Maintenance Results * (ABNORMAL) Lipid panel with reflex to direct LDL (04/23/2025 8:10 AM EDT) Cholesterol 263(H) 0 - 200 mg/dL LAB CHEMISTRY METHOD 04/23/2025 10:12 AM EDT [facility] Triglycerides 198(H) 0 - 150 mg/dL LAB CHEMISTRY METHOD 04/23/2025 10:12 AM EDT [facility] HDL 42 >=40 mg/dL LAB CHEMISTRY METHOD 04/23/2025 10:12 AM EDT [facility] LDL Calculated 181(H) 0 - 100 mg/dL LAB CHEMISTRY METHOD 04/23/2025 10:12 AM EDT [facility] VLDL Cholesterol Jaspal 39.6 mg/dL LAB CHEMISTRY METHOD 04/23/2025 10:12 AM EDT [facility] Non HDL Chol. (LDL+VLDL) 221(H) <145 mg/dL LAB CHEMISTRY METHOD 04/23/2025 10:12 AM T [facility] Chol/HDL Ratio 6.3(H) 0.0 - 4.4 LAB CHEMISTRY METHOD 04/23/2025 10:12 AM EDT [facility] Blood Venous blood specimen / Unknown Venipuncture / Unknown 04/23/2025 8:10 AM EDT 04/23/2025 8:10 AM EDT us Shoshana Giang MD LAB BLOOD ORDERABLES Final Result [facility] [address] [place] [address], * BD Bone Density DXA Axial Skeleton (02/14/2025 9:07 AM EDT) Anatomical Region Laterality Modality Wrist, Hip, L-spine Bone Densito metry 02/14/2025 9:39 AM EDT Impressions 02/14/2025 9:41 AM EDT 1. Osteoporosis. 2. FRAX analysis yields a 10-year probability of major osteoporotic fracture of 11.4% and a 10-year probability of hip fracture of 1.4%. Code 94016 -------- FINAL REPORT -------- Dictated By: José Miguel Corrales Dictated Date: 02/14/2025 09:39 ET Assigned Physician: José Miguel Corrales Reviewed and Electronically Signed By: José Miguel Corrales Signed Date: 02/14/2025 09:41 ET Workstation ID: [id number] Transcribed By: Self Edit Transcribed Date: 02/14/2025 [...] density of the femurs bilaterally is 0.756 gm/cx7elyxi is 75% of that of young normals and 80% of that of age matchedcontrols. This yields a T-score of -2.0 and a Z-score of -1.5 which isdiagnostic of osteopenia. IMPRESSION: 1. Osteoporosis. 2. FRAX analysis yields a 10-year probability of major osteoporoticfracture of 11.4% and a 10-year probability of hip fracture of 1.4%. Code 94024 -------- FINAL REPORT -------- Dictated By: José Miguel Corrales Dictated Date: 02/14/2025 09:39 ET Assigned Physician: José Miguel Corrales Reviewed and Electronically Signed By: José Miguel Corrales Signed Date: 02/14/2025 09:41 ET Workstation ID: [id number] Transcribed By: Self Edit Transcribed Date: 02/14/2025 [...] Signed Date: 02/02/2025 11:08 ET Workstation ID: [id number] Transcribed By: Self Edit Transcribed Date: 02/02/2025 10:42 ET Narrative 02/02/2025 11:08 AM EDT EXAMINATION: CT CHEST WITHOUT CONTRAST LUNG CANCER SCREENING, LOW DOSE CLINICAL INFORMATION: Lung cancer screening. Former smoker. COMPARISON: Portions of previous 12/27/23 TECHNIQUE: Multidetector CT. Examination of the chest. Examination of the chest without IV contrast. Reformatting in the coronal and sagittal planes. Device: Silicor MaterialsT DLP: 158 mGy-cm CTDI: 4.83 Dose optimization [...] in the coronal and sagittal planes. Device: Lightspeed VCT DLP: 158 mGy-cm CTDI: 4.83 Dose [...] Signed Date: 02/02/2025 11:08 ET Workstation ID: [id number] Transcribed By: Self Edit Transcribed Date: 02/02/2025 10:42 ET Ghassan Deluna MD IM CT PROCEDURES Final Result * Hepatitis C antibody (08/03/2024 10:07 AM EST) Pathologist [facility] Hepatitis C Antibody Negative Negative LAB CHEMISTRY METHOD 08/03/2024 12:16 PM EST [facility] Blood Venous blood specimen / Unknown Venipuncture / Unknown 08/03/2024 10:07 AM EST 08/03/2024 10:18 AM EST Janessa CABALLERO LAB BLOOD ORDERABLES Final Re sult [facility] [address] [place] [address], [place] [phone] * HIV 1,2 antibody, p24 antigen with reflex to differentiation (08/03/2024 10:07 AM EST) Pathologist [facility] HIV Combo AB/AG Negative Negative LAB CHEMISTRY METHOD 08/03/2024 12:17 PM EST [facility] Blood Venous blood specimen / Unknown Venipuncture / Unknown 08/03/2024 10:07 AM EST 08/03/2024 10:18 AM EST [facility]ative [facility] - 08/03/2024 12:17 PM EST This assay is a 4th generation assay allowing for earlier detection of HIV infection by detecting the presence of the HIV-1 p24 antigen as well as the traditional antibodies to HIV type 1 (including group O) and type 2. Use of a 4th generation assay is the current CDC recommendation for HIV screening. Janessa Henderson [facility] BLOOD ORDERABLES Final Re sult [facility] [address] [place] [address], [place] [phone] * Depression Screening (01/26/2024) Depression Screening abstracted [...] evidence of malignancy. BI-RADS 1 - negative us Kailee Prince [facility] IMG XR PROCEDURES Final Result * Colonoscopy (08/28/2021) Colonoscopy no interpretation , abstracted Anatomical Region Laterality Modality Other Historical Provider MD HEALTH MAINTENANCE Final Result from Last 3 Months or Most Recently Relevant to Health Maintenance Insurance [facility] MEDICARE Member Subscriber Plan / Payer (Ef fective 2019-Present) Name:JORDY LUXI Relation to Subscriber:Self Name:Tg Lux Payer ID:[id number] Group ID:[id number] Type:Not on file Address: [facility] [address] [id number] MEDICAID - [place] Care Teams Tram Driver Relationship Specialty Start Date End Date Shoshana Giang MD [address] [place] [address] PCP - General 05/04/24
== END 2025-09-18 07:04 | disposition home or self-care (01) ==
LOC: CF 07:03
PROVIDERS: Visit Provider Anesthesiology
DX: M47.816 Spondylosis without myelopathy or radiculopathy, lumbar region (principal); M47.817 Spondylosis without myelopathy or radiculopathy, lumbosacral region
CPT/HCPCS: 64493; 64494; J2003; J2795; Q9967

== ENCOUNTER 2025-09-18 13:39 | Outpatient (AMB) | payer OTHER, SELFPAY ==
[2025-09-18 13:40] VITALS: BP 149/94; PULSE 99; RESP 16; O2SAT 99; BMI 25.7
--- NOTE | 2025-09-18 13:40 | A.OFFVIS_ITS ---
Vital Signs 09/18/25 13:40 09/18/25 14:18 Height 5 ft 4.5 in Weight 152 lb BMI 25.7 BP 149/94 H 152/90 H Blood Pressure Location Lt brachial Lt brachial Position Sitting Sitting Respiration 16 16 Pulse 99 86 Pulse Source Pulse Oximeter Pulse Oximeter Pulse Oximetry (%) 99 97 Oxygen Delivery Method Room Air Room Air Intake Visit Reasons: Finn Dx L3-L4-DR-L5 MBB, *latex allergy Allergies adhesive tape Allergy (Unknown, Verified 07/16/25 14:34) Rash amoxicillin Allergy (Unknown, Verified 07/16/25 14:34) Unknown bee pollen (bee stings) Allergy (Unknown, Verified 07/16/25 14:34) Unknown bupropion Allergy (Unknown, Verified 07/16/25 14:34) Hives chicken derived (chicken) Allergy (Unknown, Verified 07/16/25 14:34) Hives chocolate Allergy (Unknown, Verified 07/16/25 14:34) Unknown cranberry Allergy (Unknown, Verified 07/16/25 14:34) Unknown egg Allergy (Unknown, Verified 07/16/25 14:34) Unknown erythromycin base Allergy (Unknown, Verified 07/16/25 14:34) Hives lactose Allergy (Unknown, Verified 07/16/25 14:34) Gastrointestinal Upset latex Allergy (Unknown, Verified 07/16/25 14:34) Unknown nefazodone Allergy (Unknown, Verified 07/16/25 14:34) Unknown sulfamethoxazole Allergy (Unknown, Verified 07/16/25 14:34) Unknown turkey Allergy (Unknown, Verified 07/16/25 14:34) Unknown PFSH Medical History (Updated 09/18/25 @ 14:39 by Nic uDdley MD) Osteoporosis Polyarthralgia Hypothyroidism Chronic lower back pain Social History (Updated 07/16/25 @ 14:19 by Juliet Ray) Alcohol intake: current Alcohol intake frequency: a few times a week Patient Tobacco Use Status: Former Tobacco user Tobacco use type: Cigarette Substance Use Type: Marijuana Physical Exam Vital Signs: Last Vital Signs Pulse 86 09/18/25 14:18 Resp 16 09/18/25 14:18 BP 152/90 H 09/18/25 14:18 Pulse Ox 97 09/18/25 14:18 Oxygen Delivery Method Room Air 09/18/25 14:18 BMI result Body Mass Index 25.7 Assessment & Plan Assessment & Plan (1) Spondylosis of lumbar region without myelopathy or radiculopathy: Code(s): M47.816 - Spondylosis without myelopathy or radiculopathy, lumbar region Category: Medical Plan Diagnostic medial branch block L3,L4 dorsal ramus L5 bilateral.? ? ?Informed consent was explained to the patient. All questions were explained and? answered.? The patient was taken inside the operating room where he was positioned prone on the operating table. Time-out was performed delineating correct site, side, the nature of the procedure, patient's allergy, . All operating room staff was participating in OR time-out procedure. ? ? The lower back was prepped with ChloraPrep and draped with sterile utility towels.? C-arm was brought over the operating field and sq picture of L4-, L5 vertebra and S1 AREA were delineated on the screen.? Point of interest were delineated as confluence of superior articular process of L4 and L5 vertebra bilaterally with corresponding transverse processes as well as confluence of the sacral alae bilaterally with superior articular process of S1.? The projection of the point of interest to the skin were inject ed with the small amount of local anesthetic lidocaine 2% mixed with ropivacaine 0.5% 1-1 approximately 1 cc.? After that 22 gauge 3.5 inch spinal needle was driven sequentially to the points of interest in tunnel vision fashion. After needles gently contacted the bone at the point of interests the needle was injected with small amount of the contrast.? The injection of the contrast did not demonstrate any intravascular or intrathecal spread of the contrast.? After that injection of the? ropivacaine 0.5%-1cc was performed at each needle location.?After that the needles were removed and Bandaids were applied. Coding Level of Care Code Procedure Only Diagnoses Spondylosis of lumbar region without myelopathy or radiculopathy M47.816
[2025-09-18 14:18] VITALS: BP 152/90; PULSE 86; RESP 16; O2SAT 97
--- OUTSIDE RECORDS SUMMARY | 2025-09-18 17:32 | XMS_ITS | Clinical Summary ---
Author Organization [facility] Address [address] [place] [address] Care Team Providers Care Chalker Soles Name Role Phone Shoshana Giagn MD Primary Care Provider [phone] Allergies Active Allergy Reactions Criticality Noted Date Comments Amoxicillin 01/16/2016 Bupropion Hives 01/16/2016 Chicken Derived Hives 12/15/2018 Chocolate 01/15/2022 Cranberry 01/15/2022 Egg Medium 06/13/2013 Erythromycin Hives 01/16/2016 Lactose GI intolerance 12/15/2018 Latex 11/16/2012 Nefazodone Hives 01/16/2016 Other 06/21/2013 Adhesive tape:Other Reaction(s): Rash/Dermatitis Devi skin/redness Bee stings Sulfamethoxazole-Trimethop rim 11/16/2012 [place] 12/21/2018 [place] [facility] simethicone (MYLICON) 125 mg chewable tablet [...] therapy, she can discuss further with PCP, BOND CLERK or menopause specialist, we talked about benefits [...] reveal sleep apnea or nocturnal hypoxia. 01/07/2023 [facility] Sleep Center Polysomnogram: Wt 225#; [...] Asthma 11/16/2012 Overview (06/14/2024): 11/02-moves here from [place] Deafness 11/16/2012 Overview (06/14/2024): Recurrent ear infections Hyperlipidemia 11/16/2012 Hypothyroidism 11/16/2012 Overview (06/14/2024): graves Migraine 11/16/2012 Overview (06/14/2024): parasthesias-had seen neurology in [place], [place].had nerve conduction test as well Encounters Date Type Department Care Team Description 07/23/2025 Telephone Adult Medicine [address] [phone] Shoshana Giang MD 06/20/2025 8:45 AM EDT Office Visit Adult Medicine [address] [phone] Nikkie Cruz-Pam Nixon, [place] Chronic midline low [...] Allergic rhinitis 11/16/2012 Asthma 11/16/201211/02-moves here from [place] Deafness 11/16/2012 Recurrent ear in fections Depression 03/02/2013 Hyperlipidemia 11/16/2012 Hypothyroidism 11/16/2012 graves Migraine 11/16/2012 parasthesias-had seen neurology in [place], [place].had nerve conduction test as well Genetic [...] for your loved ones. For example, child welfare counselor or elderly care for an older adult? [...] 11:00 AM EST Consult Vascular Surgery - [place] [address] [place] [address] Ashli Dickson MD [address] [place] [phone] 03/19/2026 10:00 AM EDT Office Visit Adult Medicine [address] [phone] Shoshana Giang MD [address] [facility] [place] [address] Health Maintenance Due Date Last Done Comments [...] LAB CHEMISTRY METHOD 04/23/2025 10:12 AM EDT [facility] Triglycerides 198(H) 0 - 150 mg/dL LAB CHEMISTRY METHOD 04/23/2025 10:12 AM EDT [facility] HDL 42 >=40 mg/dL LAB CHEMISTRY METHOD 04/23/2025 10:12 AM EDT [facility] LDL Calculated 181(H) 0 - 100 mg/dL LAB CHEMISTRY METHOD 04/23/2025 10:12 AM EDT [facility] VLDL Cholesterol Jaspal 39.6 mg/dL LAB CHEMISTRY METHOD 04/23/2025 10:12 AM EDT [facility] Non HDL Chol. (LDL+VLDL) 221(H) <145 mg/dL LAB CHEMISTRY METHOD 04/23/2025 10:12 AM T [facility] Chol/HDL Ratio 6.3(H) 0.0 - 4.4 LAB CHEMISTRY METHOD 04/23/2025 10:12 AM EDT [facility] Blood Venous blood specimen / Unknown Venipuncture / Unknown 04/23/2025 8:10 AM EDT 04/23/2025 8:10 AM EDT us Shoshana Giang MD LAB BLOOD ORDERABLES Final Result [facility] [address] [place] [address], * BD Bone Density DXA Axial Skeleton (02/14/2025 9:07 AM EDT) Anatomical Region Laterality Modality Wrist, Hip, L-spine Bone Densito metry 02/14/2025 9:39 AM EDT Impressions 02/14/2025 9:41 AM EDT 1. Osteoporosis. 2. FRAX analysis yields a 10-year probability of major osteoporotic fracture of 11.4% and a 10-year probability of hip fracture of 1.4%. Code 95200 -------- FINAL REPORT -------- Dictated By: José Miguel Corrales Dictated Date: 02/14/2025 09:39 ET Assigned Physician: José Miguel Corrales Reviewed and Electronically Signed By: José Miguel Corrales Signed Date: 02/14/2025 09:41 ET Workstation ID: [id number] Transcribed By: Self Edit Transcribed Date: 02/14/2025 [...] density of the femurs bilaterally is 0.756 gm/wt1xvpnf is 75% of that of young normals and 80% of that of age matchedcontrols. This yields a T-score of -2.0 and a Z-score of -1.5 which isdiagnostic of osteopenia. IMPRESSION: 1. Osteoporosis. 2. FRAX analysis yields a 10-year probability of major osteoporoticfracture of 11.4% and a 10-year probability of hip fracture of 1.4%. Code 06991 -------- FINAL REPORT -------- Dictated By: José Miguel Corrales Dictated Date: 02/14/2025 09:39 ET Assigned Physician: José Miguel Corrales Reviewed and Electronically Signed By: José Miguel Corrales Signed Date: 02/14/2025 09:41 ET Workstation ID: [id number] Transcribed By: Self Edit Transcribed Date: 02/14/2025 [...] Signed Date: 02/02/2025 11:08 ET Workstation ID: [id number] Transcribed By: Self Edit Transcribed Date: 02/02/2025 10:42 ET Narrative 02/02/2025 11:08 AM EDT EXAMINATION: CT CHEST WITHOUT CONTRAST LUNG CANCER SCREENING, LOW DOSE CLINICAL INFORMATION: Lung cancer screening. Former smoker. COMPARISON: Portions of previous 12/27/23 TECHNIQUE: Multidetector CT. Examination of the chest. Examination of the chest without IV contrast. Reformatting in the coronal and sagittal planes. Device: Rpptrip.comT DLP: 158 mGy-cm CTDI: 4.83 Dose optimization [...] Signed Date: 02/02/2025 11:08 ET Workstation ID: [id number] Transcribed By: Self Edit Transcribed Date: 02/02/2025 10:42 ET Ghassan Deluna MD IM CT PROCEDURES Final Result * Hepatitis C antibody (08/03/2024 10:07 AM EST) Pathologist [facility] Hepatitis C Antibody Negative Negative LAB CHEMISTRY METHOD 08/03/2024 12:16 PM EST [facility] Blood Venous blood specimen / Unknown Venipuncture / Unknown 08/03/2024 10:07 AM EST 08/03/2024 10:18 AM EST Janessa CABALLERO LAB BLOOD ORDERABLES Final Re sult [facility] [address] [place] [address], [place] [phone] * HIV 1,2 antibody, p24 antigen with reflex to differentiation (08/03/2024 10:07 AM EST) Pathologist [facility] HIV Combo AB/AG Negative Negative LAB CHEMISTRY METHOD 08/03/2024 12:17 PM EST [facility] Blood Venous blood specimen / Unknown Venipuncture / Unknown 08/03/2024 10:07 AM EST 08/03/2024 10:18 AM EST [facility]ative [facility] - 08/03/2024 12:17 PM EST This assay is a 4th generation assay allowing for earlier detection of HIV infection by detecting the presence of the HIV-1 p24 antigen as well as the traditional antibodies to HIV type 1 (including group O) and type 2. Use of a 4th generation assay is the current CDC recommendation for HIV screening. Janessa Henderson [facility] BLOOD ORDERABLES Final Re sult [facility] [address] [place] [address], [place] [phone] * Depression Screening (01/26/2024) Depression Screening abstracted [...] Most Recently Relevant to Health Maintenance Insurance [facility] MEDICARE Member Subscriber Plan / Payer (Ef fective 2019-Present) Name:JORDY LUXI Relation to Subscriber:Self Name:Tg Lux Payer ID:[id number] Group ID:[id number] Type:Not on file Address: [facility] [address] [id number] MEDICAID - [place] Care Teams Chalker Soles Relationship Specialty Start Date End Date Shoshana Giang MD [address] [place] [address] PCP - General 05/04/24
== END 2025-09-18 14:30 | disposition home or self-care (01) ==
LOC: HO.PMCPRC 13:39
PROVIDERS: PCP Internal Medicine; Visit Provider Anesthesiology
DX: M47.816 Spondylosis without myelopathy or radiculopathy, lumbar region (principal)
CPT/HCPCS: 64493; 64494